=== PATIENT | male | born 1990 | race Caucasian/White ===

== ENCOUNTER 2020-09-24 09:28 | Emergency (ER) | payer OTHER ==
[~2020-09-24] VITALS: Ht 185.4 cm; Wt 83.9 kg
[2020-09-24] MEDS ORDERED: IBU800 MG PO (09:52)
[2020-09-24] MEDS ORDERED: Amoxicillin500 MG PO (09:52)
== END 2020-09-24 09:57 | disposition home or self-care (01) ==
LOC: ER 09:28
DX: K02.9 Dental caries, unspecified (principal)
CPT/HCPCS: 99282

== ENCOUNTER 2020-09-25 21:55 | Emergency (ER) | payer OTHER ==
[~2020-09-25] VITALS: Ht 185.4 cm; Wt 83.9 kg
[~2020-09-25 21:55] MED LIST: Amoxicillin500 MG PO; IBU800 MG PO
== END 2020-09-26 00:45 | disposition home or self-care (01) ==
LOC: ER 21:55
DX: K08.89 Other specified disorders of teeth and supporting structures (principal)
CPT/HCPCS: 96372; 99282; 99282-25; A9270; J1885

== ENCOUNTER 2021-05-29 09:03 | Emergency (ER) | payer OTHER ==
[~2021-05-29] VITALS: Ht 175.3 cm; Wt 68.0 kg
[~2021-05-29 09:03] MED LIST changes: +BENZ100A PO; +ONDA4 PO
== END 2021-05-29 10:45 | disposition home or self-care (01) ==
LOC: ER 09:03
DX: F43.21 Adjustment disorder with depressed mood (principal)
CPT/HCPCS: 99283